=== PATIENT | male | born 1985 | race Caucasian/White ===

== ENCOUNTER 2021-12-20 13:49 | Outpatient (CLI) | payer BC, SELFPAY ==
[2021-12-20 16:11] LABS: Chloride* 102 mmol/L (96-114)
[2021-12-20 16:12] LABS: Potassium* 4.6 mmol/L (3.6-5.1); Sodium* 140 mmol/L (135-149)
[2021-12-20 16:15] LABS: Blood Urea Nitrogen* 20 mg/dL (5-24); Calcium* 9.7 mg/dL (8.4-10.6); Carbon Dioxide* 28 mmol/L (20-32); Creatinine* 0.9 mg/dL (0.5-1.5); Estimated Glomerular Filt Rate 115 ml/min; Glucose* 111 mg/dL (60-115)
== END 2021-12-20 13:50 | disposition home or self-care (01) ==
LOC: NFLDREF 13:50
PROVIDERS: Visit Provider Family Medicine
DX: I10 Essential (primary) hypertension (principal)
CPT/HCPCS: 80048

== ENCOUNTER 2023-04-25 15:40 | Outpatient (CLI) | payer BC, SELFPAY | END 2023-04-25 15:41 | disposition home or self-care (01) | LOC: NFLDREF 15:40 | PROVIDERS: PCP Family Medicine; Visit Provider Family Medicine | DX: I10 Essential (primary) hypertension (principal) | CPT/HCPCS: 80048 ==

== ENCOUNTER 2024-12-09 16:09 | Outpatient (CLI) | payer BC, SELFPAY | END 2024-12-09 16:10 | disposition home or self-care (01) | PROVIDERS: PCP Family Medicine; Visit Provider Physician Assistant Medical | DX: I10 Essential (primary) hypertension (principal) | CPT/HCPCS: 82043; 82088; 82570; 84244 ==

== ENCOUNTER 2024-12-24 13:42 | Outpatient (CLI) | payer BC, SELFPAY ==
[2024-12-24 15:05] VITALS: BP 136/82; PULSE 82; RESP 22; O2SAT 98
--- NOTE | 2024-12-24 15:20 | W.PM.STED ---
Stress Test Note Date Date Seen: 12/24/24 Date of test: 12/24/24 Providers Primary care provider: Janay Kilgore Stress test physician: Moises Metzger Stress Test Note Indication for test: Chest pain Results discussion: Patient is a very nice gentleman who presents here for a stress echo, discussion of the risks benefits and side effects are done he would like to proceed. Pretest EKG shows normal sinus rhythm, no acute ST wave changes, there is some the irregularity of the ST segments noted laterally and inferiorly. This is more pronounced than the EKG I have on record from 12/09 2024 standard Danyel protocol is done for duration of 5 minutes 40 seconds, achieved a metabolic equivalent of 7.1 Mets with a maximum heart rate of 162 which is 103% of the maximum, some minimal ST wave changes are noted of depression laterally inferiorly nondiagnostic of ischemia. He had no chest pain, and some mild leg cramping. Impression: Negative electrographic tracing of his stress echo, subjectively negative Follow up suggested: Await echo imaging, clinical correlation will be needed, cardiology will review, patient will follow-up with the ordering physician. Patient left this testing facility in excellent condition at baseline. No complaints.
== END 2024-12-24 15:23 | disposition home or self-care (01) ==
LOC: STRESS 13:43
PROVIDERS: PCP Physician Assistant Medical; Visit Provider Physician Assistant Medical
DX: R07.9 Chest pain, unspecified (principal); I10 Essential (primary) hypertension
CPT/HCPCS: 93016; 93325; 93351